=== PATIENT | male | born 1965 | race African-American/Black ===

== ENCOUNTER 2024-09-06 15:32 | Emergency (ER) | payer SELFPAY ==
[2024-09-06 15:38] VITALS: TEMP 98.7; BMI 27.8
[2024-09-06] MEDS: ALBUTEROL SO4 2.5/IPRATROPIUM 0.5 INH SOL 3 ML VIAL.NEB. NEB SCH (15:44)
[2024-09-06] MEDS ORDERED: methylPREDNISolone NA SUCC 125 MG/2 ML VIAL ONE (15:54)
[2024-09-06] MEDS ORDERED: MAGNESIUM SULFATE IN WATER 2 GM/50 ML IVPB IVPB ONE (15:55)
[2024-09-06] MEDS: MAGNESIUM SULF 50% (8.12 MEQ/2 ML-1 GM VIAL) IVPB ONE (16:03)
[2024-09-06] MEDS: methylPREDNISolone NA SUCC 125 MG/2 ML VIAL IVPUSH ONE (16:03)
[2024-09-06 16:07] LABS: ABSOLUTE IMMATURE GRANULOCYTES 0.03 x10^3/uL (0.0-0.031); BASOPHILS # 0.04 x10^3/uL (0.01-0.08); EOSINOPHIL % 5.7 % (0.8-7.0); EOSINOPHILS # 0.37 x10^3/uL (0.04-0.54); HEMATOCRIT 55.3 % (40.1-51.0); HEMOGLOBIN 17.8 g/dL (13.7-17.5); MCHC 32.2 g/dl (32.3-36.5); MEAN CELL VOLUME 90.1 fl (79.0-92.2); MEAN PLT VOLUME 9.1 fl (9.4-12.4); MONOCYTE # 0.37 x10^3/uL (0.30-0.82); MONOCYTE % 5.7 % (5.3-12.2); PLATELET COUNT 190 x10^3/uL (163-337); RDW 14.3 % (12.2-16.1)
[2024-09-06 16:10] LABS: VENOUS BASE EXCESS -3.2 mmol/L (-2-2); VENOUS O2 SATURATION 67.8 % (70-80); VENOUS PCO2 46.7 mmHg (38-52); VENOUS PH 7.317 (7.310-7.410)
[2024-09-06] MEDS ORDERED: ALBUTEROL SO4 2.5/IPRATROPIUM 0.5 INH SOL 3 ML VIAL.NEB. NEB ONE (16:28)
[2024-09-06 16:36] LABS: ALBUMIN 4.3 g/dl (3.4-5.0); BLOOD UREA NITROGEN 15.1 mg/dL (7-18)
[2024-09-06 16:40] LABS: CREATININE 1.3 mg/dL (0.55-1.3)
[2024-09-06 16:42] LABS: BILIRUBIN,TOTAL 0.8 mg/dL (0.2-1); TOT PROT 7.6 g/dl (6.4-8.2)
[2024-09-06 17:06] VITALS: BP 140/88; PULSE 88; RESP 16
[2024-09-06] MEDS ORDERED: ALBUTEROL SO4 HFA INHALER IH ONE (17:18)
[2024-09-06 17:32] LABS: HCV DIAGNOSTIC IN-HOUSE W/RFLX NON-REACTIVE (NONREACTIVE)
[2024-09-06 20:33] LABS: HIV INTERPRETATION NEGATIVE (NEGATIVE)
== END 2024-09-06 17:25 | disposition home or self-care (01) ==
LOC: JER 15:32
PROC: 3E033GC Introduction of Other Therapeutic Substance into Peripheral Vein, Percutaneous Approach (ICD-10-PCS; principal; 2024-09-06)
PROC: 3E033GC Introduction of Other Therapeutic Substance into Peripheral Vein, Percutaneous Approach (ICD-10-PCS; 2024-09-06)
PROC: 3E0F7GC Introduction of Other Therapeutic Substance into Respiratory Tract, Via Natural or Artificial Opening (ICD-10-PCS; 2024-09-06)
DX: J45.901 Unspecified asthma with (acute) exacerbation (principal); R06.02 Shortness of breath
CPT/HCPCS: 36415; 71045-TC-FY; 80053; 82803; 83735; 85025; 86803; 87389; 93005; 93010; 99285-25